=== PATIENT | male | born 1960 | race Caucasian/White ===

== ENCOUNTER 2019-10-18 18:48 | Emergency (ER) | payer SELFPAY ==
[2019-10-18] MEDS ORDERED: Bacitracin 1 PK ONE (19:23)
== END 2019-10-18 19:35 | disposition home or self-care (01) ==
LOC: ERS 18:48
DX: Z48.01 Encounter for change or removal of surgical wound dressing (principal); F17.210 Nicotine dependence, cigarettes, uncomplicated
CPT/HCPCS: 99282